=== PATIENT | female | born 1980 | race Caucasian/White ===

== ENCOUNTER 2017-04-28 18:33 | Emergency (ER) | payer MEDICAID ==
[~2017-04-28] VITALS: Ht 160 cm; Wt 93.0 kg
[2017-04-28 19:48] VITALS: Ht 160 cm; Wt 93.0 kg
[2017-04-28 21:54] VITALS: BP 138/88
== END 2017-04-28 21:54 | disposition home or self-care (01) ==
LOC: ED 18:33
DX: G43.909 Migraine, unspecified, not intractable, without status migrainosus (principal); F41.9 Anxiety disorder, unspecified; Z86.2 Personal history of diseases of the blood and blood-forming organs and certain disorders involving the immune mechanism
CPT/HCPCS: J1885